=== PATIENT | male | born 1970 | race Caucasian/White ===

== ENCOUNTER → 2016-08-14 | Outpatient (CLI) | payer MEDICAID ==
[~2016-08-14] MED LIST: AUGMENTIN1 TA2 PO; GABAPENTIN300 MG PO; HYDROCODONE/ACE1 TA5 PO; LISINOPRIL10 MG PO
[2016-08-14 19:40] LABS: AMPHETAMINES/METAMPHETAMINES NEGATIVE ng/mL (<1000)
== END ==
LOC: LAB 18:49
PROVIDERS: Emergency Medicine
DX: Z79.899 Other long term (current) drug therapy (principal)

== ENCOUNTER → 2016-08-29 | Outpatient (CLI) | payer MEDICAID ==
--- NOTE | 2016-08-30 07:14 | RADIOLOGY REPORT PS360 ---
MRI-C-SPINE W/O, MRI-3D RENDERING/MYELOGRAM HISTORY: Severe neck pain with motion BACK PAIN, NECK PAIN ORDERING PHYSICIAN: Renaldo Garcia MD PATIENT AGE: 45 years COMPARISON: None TECHNIQUE: Standard multiplanar multiecho sequences are performed without contrast. 3-D MIP and myelographic images are also rendered and reviewed FINDINGS: Normal alignment. Unremarkable craniocervical junction. C2-C3: Unremarkable. C3-C4: Degenerative disc disease with bulging disc which is eccentric toward the right versus broad-based central right paracentral disc protrusion with mild right lateral recess narrowing. Canal stenosis at 10 mm. The disc abuts the anterior aspect of the cord at this level. C4-C5: Severe degenerative disc disease with bulging disc and broad-based Central and right paracentral and foraminal disc protrusion versus disc osteophyte complex with severe canal stenosis and severe bilateral lateral recess narrowing and foraminal narrowing which is more extensive on the right. There is mild impingement and flattening of the anterior aspect of the spinal cord more towards the right at this area. There are Modic type I endplate changes at this level on the right. C5-C6: Severe degenerative disc disease with bulging disc with both right and left paracentral disc protrusion/disc osteophyte complexes with severe canal stenosis and severe bilateral lateral recess and foraminal narrowing with cord compression both anteriorly and on the right and left. C6-C7: Severe degenerative disc disease with bulging disc along with bilateral lateral recess and foraminal narrowing. C7-T1: Unremarkable. IMPRESSION: 1. Abnormal MRI of the cervical spine with multilevel spondylosis of the cervical spine with bulging disc, endplate osteophytes, and disc osteophyte complexes with canal stenosis from C3 to C7 with bilateral lateral recess and foraminal narrowing.. This is most severe at C5-C6. Please see above for detailed description at each level.
--- NOTE | 2016-08-30 07:27 | RADIOLOGY REPORT PS360 ---
MRI-L-SPINE W/O HISTORY: Left-sided low back pain rating down left leg BACK PAIN, NECK PAIN ORDERING PHYSICIAN: Renaldo Garcia MD PATIENT AGE: 45 years COMPARISON: None TECHNIQUE: Standard multiplanar multiecho sequences are performed without contrast. 3-D MIP and myelographic images are also rendered and reviewed FINDINGS: There is a transitional segment at the lumbosacral junction which is labeled as S1 and is felt to represent a lumbarized S1 segment. Correlation with radiographs recommended if any intervention is contemplated. There is multilevel degenerative disc disease. T12-L1: Degenerative disc disease. L1-L2: Degenerative disc disease with minimal bulging disc along with minimal right foraminal disc protrusion and mild right foraminal narrowing. L2-L3: Degenerative disc disease with bulging disc and facet and ligamentum hypertrophy with bilateral lateral recess narrowing and transverse canal narrowing. L3-L4: Degenerative disc disease with bulging disc with Schmorl's nodes at that level. There is facet and ligamentum flavum hypertrophy with bilateral lateral recess and mild bilateral foraminal narrowing. L4-L5: Degenerative disc disease with bulging discs along with severe facet and ligamentum flavum hypertrophy with severe canal stenosis and severe bilateral lateral recess narrowing. L5-S1: 4 mm anterolisthesis of L5 degenerative disc disease at that level along with facet hypertrophic change and moderate bilateral foraminal narrowing and borderline transverse canal stenosis. No extruded herniated disc evident. IMPRESSION: 1. Transitional segment at the lumbosacral junction which is labeled as a lumbarized S1 segment. Please correlate with radiographs for confirmation if any intervention is competent related. 2. Multilevel lumbar spondylosis as detailed above with degenerative disc disease, bulging disc, facet and ligamentum hypertrophy. Please see above for detail description of each level 3. Severe canal stenosis with severe bilateral lateral recess narrowing at L4-L5 due to bulging disc and facet and ligamentum hypertrophy. 4. Bulging disc at L2-L3 with borderline narrowing of the canal with bilateral lateral recess narrowing slightly greater on the left. The disc is slightly eccentric toward the left at this level.
== END ==
LOC: RAD 08:00
DX: M54.2 Cervicalgia (principal); M54.5 Low back pain

== ENCOUNTER → 2016-09-04 | Outpatient (CLI) | payer MEDICAID ==
[2016-09-04 19:21] LABS: AMPHETAMINES/METAMPHETAMINES NEGATIVE ng/mL (<1000)
== END ==
LOC: LAB 16:58
PROVIDERS: Emergency Medicine
DX: Z79.899 Other long term (current) drug therapy (principal)

== ENCOUNTER → 2017-01-23 | Outpatient (CLI) | payer MEDICAID ==
[2017-01-23 14:24] LABS: AMPHETAMINES/METAMPHETAMINES NEGATIVE ng/mL (<1000)
== END ==
LOC: LAB 13:21
PROVIDERS: Emergency Medicine
DX: Z79.899 Other long term (current) drug therapy (principal)